=== PATIENT | male | born 1990 | race Caucasian/White ===

== ENCOUNTER 2023-04-27 08:16 | Outpatient (AMB) | payer OTHER, SELFPAY ==
--- NOTE | 2023-04-27 09:02 | MHC.OFFWIV ---
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 Pt states today his bp was also high reading 180/90. 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 Last week he was working outside and was feeling increasingly dehydrated and flushed. He had attributed it to the heat wave conditions and went home early on Wednesday. His girlfriend is a nurse in she was checking his blood pressures and found to be very elevated. They have been and elevated all weekend. Patient gives history of hypertension at age 24 and he stopped taking medications 5 years ago. Patient reports he lost a lot of weight when he stopped taking the medications. [facility] Social History Patient Tobacco Use Status: Never used Tobacco Physical Exam Vital Signs: Last Vital Signs Temp 98 F 04/27/23 09:03 Pulse 73 04/27/23 09:03 BP 182/100 H 04/27/23 09:03 Pulse Ox 98 04/27/23 09:03 Oxygen Delivery Method Room Air 04/27/23 09:03 Const General: cooperative and healthy appearing Nutritional Appearance: well nourished Orientation/consciousness: patient oriented x3 Limitations: no limitations HEENT Head: Yes normal to inspection Eyes General: appearance normal, both eyes and all related structures Neck Neck: Yes normal visual inspection Chest Chest palpation & inspection: normal palpation of entire chest wall Resp Effort & Inspection: normal respiratory effort Neuro General: patient oriented x3 Assessment & Plan Assessment & Plan (1) Essential hypertension: Code(s): I10 - Essential (primary) hypertension Plan: Blood pressure medications started. Unfortunately his primary care appointment is scheduled only in June. I have offered to take care of the patient from the walk-in till he sees his primary care provider. Patient will return in a week for blood pressure checks. Blood work has been ordered. Orders: Orders Complete Blood Count no Diff Today I10 - Essential (primary) hypertension Basic Metabolic Panel Today I10 - Essential (primary) hypertension Liver Panel Today I10 - Essential (primary) hypertension Lipid Panel Today I10 - Essential (primary) hypertension Thyroid Stimulating Hormone Today I10 - Essential (primary) hypertension UA and rflx microscopic Today I10 - Essential (primary) hypertension Medications: New lisinopril-hydrochlorothiazide 10-12.5 mg 1 tab PO DAILY 90 tabs 1RF Coding Level of Care Code New Pt Level 4 (30700) Diagnoses Essential hypertension I10
[2023-04-27 09:03] VITALS: BP 182/100; PULSE 73; TEMP 36.6; O2SAT 98
== END 2023-04-27 09:57 | disposition home or self-care (01) ==
PROVIDERS: PCP Nurse Practitioner Family; Visit Provider Internal Medicine
DX: I10 Essential (primary) hypertension (principal)
CPT/HCPCS: 99204

== ENCOUNTER 2023-04-27 09:37 | Outpatient (REF) | payer OTHER, SELFPAY ==
[2023-04-27 11:42] LABS: Hematocrit 48.6 % (42.0-52.0); Hemoglobin 16.1 g/dl (14.0-18.0); Mean Corpuscular HGB Conc 33.1 g/dl (31.0-36.0); Mean Corpuscular Hemoglobin 28.5 pg (27.0-33.0); Mean Platelet Volume 10.1 fL (9.4-12.4); Platelet Count 391 X10*3/uL (160-400); Red Blood Count 5.65 X10*6/uL (4.60-5.80); Red Cell Distribution Width 12.3 % (11.0-16.0); White Blood Count 8.5 X10*3/uL (4.8-10.8)
[2023-04-27 12:50] LABS: Appearance Urine Clear; Color Urine Yellow; Glucose Urine UA Negative (Negative); Leukocyte Esterase Urine Negative (Negative); Nitrite Urine Negative (Negative); PH 7.5 (5.0-9.0); Urine Blood Negative (Negative); Urine Ketones Negative (Negative); Urine Protein Trace mg/dL (Neg-Trace)
[2023-04-27 13:04] LABS: Alanine Aminotransferase 21 U/L (0-40); Albumin Level 4.7 g/dL (3.5-5.0); Alkaline Phosphatase 49 U/L (39-117); Anion Gap 17 (12-20); Aspartate Amino Transferase 16 U/L (5-37); Bilirubin Direct 0.2 mg/dL (0.0-0.5); Bilirubin Total 0.5 mg/dL (0.0-1.0); Blood Urea Nitrogen 13 mg/dL (9-16); Calcium 10.2 mg/dL (8.4-10.2); Carbon Dioxide 23 mmol/L (22-29); Chloride 106 mmol/L (96-108); Cholesterol 188 mg/dL; Estimated Glomerular Filt Rate > 60; Glucose Random 92 mg/dL (60-115); HDL Cholesterol 33 mg/dL; LDL Cholesterol Calculated 136 mg/dl; Potassium 4.1 mmol/L (3.3-5.1); Sodium 142 mmol/L (135-145); Thyroid Stimulating Hormone 0.92 uIU/mL (0.32-4.0); Triglycerides 96 mg/dL
== END 2023-04-27 09:38 | disposition home or self-care (01) ==
LOC: HO.HMGCLDS 09:37
PROVIDERS: PCP Nurse Practitioner Family; Visit Provider Internal Medicine
DX: I10 Essential (primary) hypertension (principal)
CPT/HCPCS: 36415; 80048; 80061; 80076; 81003; 84443; 85027

== ENCOUNTER 2023-05-03 08:18 | Outpatient (AMB) | payer OTHER, SELFPAY ==
--- NOTE | 2023-05-03 08:47 | AM.OFFWIN_ITS ---
Intake Vital Signs 05/03/23 08:50 Height 5 ft 10 in BP 138/78 Blood Pressure Location Lt brachial Position Sitting Pulse 77 Pulse Source Pulse Oximeter Temp 97.7 F Temp Source Temporal Artery Scan Pulse Oximetry (%) 99 Oxygen Delivery Method Room Air Intake Visit Reasons: EP walk in follow up 04/27 bp (lobby) Patient Tobacco Use Status: Never used Tobacco Allergies Penicillins Adverse Reaction (Intermediate, Verified 05/03/23 08:50) Rash Do you need a note to return to daycare/school/sports/work: No HPI EP walk in follow up 04/27 bp (lobby) HPI Details [age] year old male presents to the office for a follow-up visit. He is tolerating the medications well. I reviewed the blood pressures he had done at home. There less than 135/80. Since he started taking the medication, patient feels a little more tired. Able to function and do activities of daily living. His blood work was reviewed with him. [facility] Social History Patient Tobacco Use Status: Never used Tobacco Physical Exam Vital Signs: Last Vital Signs Temp 97.7 F 05/03/23 08:50 Pulse 77 05/03/23 08:50 BP 138/78 05/03/23 08:50 Pulse Ox 99 05/03/23 08:50 Oxygen Delivery Method Room Air 05/03/23 08:50 Const General: cooperative and healthy appearing Nutritional Appearance: well nourished Orientation/consciousness: patient oriented x3 Limitations: no limitations HEENT Head: Yes normal to inspection Eyes General: appearance normal, both eyes and all related structures Neck Neck: Yes normal visual inspection Chest Chest palpation & inspection: normal palpation of entire chest wall Resp Effort & Inspection: normal respiratory effort Neuro General: patient oriented x3 Assessment & Plan Assessment & Plan (1) Essential hypertension: Code(s): I10 - Essential (primary) hypertension Plan: Blood pressure is in range. Continue medications at same dosage. BW revd with patient. Counselling on the importance of diet and exercise done. Coding Level of Care Code Est Pt Level 4 (58986) Diagnoses Essential hypertension I10
[2023-05-03 08:50] VITALS: BP 138/78; PULSE 77; TEMP 36.5; O2SAT 99
== END 2023-05-03 10:01 | disposition home or self-care (01) ==
PROVIDERS: PCP Nurse Practitioner Family; Visit Provider Internal Medicine
DX: I10 Essential (primary) hypertension (principal)
CPT/HCPCS: 99214

== ENCOUNTER 2023-07-14 15:30 | Outpatient (AMB) | payer OTHER, SELFPAY ==
--- NOTE | 2023-07-14 15:33 | A.OFFPC_ITS ---
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: No Allergies Penicillins Adverse Reaction (Intermediate, Verified 07/14/23 15:59) Rash Medication List - Last Reconciled 07/14/23 by ROSALIND Caceres No Known Home Meds Tobacco use date assessed: 07/14/23 Dental Screening Dental Screen Date: 07/14/23 Did you have a dental visit in the last 12 months?: Yes Did you have a dental problem in the last 6 months where you did not have access to dental care?: No Was dental information given to patient?: Patient has dentist HPI 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 Previous PCP Dr. Salazar at [facility] 2 years ago. Medical history significant for obesity and hypertension-patient reports that he stopped taking lisinopril 3 weeks ago due to side effect of headache, palpitations. Reports systolic blood pressures at home 142-130 and diastolic blood pressure 90. Patient denies any headache, vision changes, shortness of breath or chest pain in the office today. Today we discussed patient's need for tetanus vaccine. He smoked for 10 years and quit 1 year ago. Does not see eye doctor, denies problems with eyes. Will call for dental exam. Recent blood work results reviewed with the patient. [facility] Surgical History No pertinent past surgical history Family History Mother No problems noted. Father No problems noted. Social History Housing: House Patient Tobacco Use Status: Never used Tobacco service: No Current occupational status: employed Cognitive needs: No Hearing needs: No Vision needs: No Questionnaire PHQ-9 Over the last 2 weeks, how often have you been bothered by any of the following problems? 1. Little interest or pleasure in doing things: not at all 2. Feeling down, depressed, or hopeless: not at all 3. Trouble falling or staying asleep, or sleeping too much: not at all 4. Feeling tired or having little energy: not at all 5. Poor appetite or overeating: not at all 6. Feeling bad about yourself - or that you are a failure or have let yourself or your family down: not at all 7. Trouble concentrating on things, such as reading the newspaper or watching television: not at all 8. Moving or speaking so slowly that other people could have noticed. Or the opposite - being so fidgety or restless that you have been moving around a lot more than usual: not at all 9. Thoughts that you would be better off or of hurting yourself in some way: not at all Total score: 0 Depression Screening Interpretation: Negative Depression Screening Done: Yes 32465 - PHQ-9 Billing: Yes Source: Developed by Drs. Morgan Bergman, Jina Ascencio, Cruzito Mahmood and colleagues, with an educational chavo from [employer]. Thrive Questionnaire Date Thrive assessed: 07/14/23 I am a: Patient What is your living situation today?: I have a steady place to live Within the past 12 months, did the food you bought not last and you didn't have the money to get more?: Never true Within the past 12 months, did you worry whether your food would run out before you got money to buy more?: Never true Do you have trouble paying for medicines?: No Do you have trouble getting transportation to medical appointments?: No Do you have trouble paying your heating and electricity bill?: No Do you have trouble taking care of your child, family member or friend?: No Do you have trouble with day-to-day activities such as bathing, preparing meals, shopping, managing finances, etc.?: No Are you currently unemployed and looking for a job?: No Are you interested in more education?: No Currently or been in a relationship where the following occur: no concerns reported AUDIT C Alcohol Use Questionnaire (AUDIT-C) 1. How often do you have a drink containing alcohol?: Never 3. How often do you have six or more drinks on one occasion?: Never Total Score: 0 Score Reviewed/Action Taken: No TEVIN-7 AMB Questionnaire TEVIN-7 Date TEVIN - 7 assessed: 07/14/23 Feeling nervous, anxious, or on edge: 0 = Not at all Not being able to stop or control worryin = Not at all Worrying too much about different things: 0 = Not at all Trouble relaxin = Not at all Being so restless that it is hard to sit still: 0 = Not at all Becoming easily annoyed or irritable: 0 = Not at all Feeling afraid as if something awful might happen: 0 = Not at all Total TEVIN-7 score (0-4 normal; 5-9 mild; 10-14 moderate; 15-21 severe): 0 Source: Developed by Drs. Morgan Bergman, Jina Ascencio, Cruzito Mahmood and colleagues, with an educational chavo from [employer]. TEVIN-7 Assessment Billing TEVIN-7 Assessment Tool: TEVIN-7 Assessment 40320 Review of Systems Const Denies body aches, Denies chills, Denies fever(s) and Denies headache(s) Eyes Denies change in vision ENT Denies dizziness, Denies otalgia, Denies headache(s), Denies nasal discharge, Denies sinus pain and Denies sore throat Card Denies chest pain, Denies edema, Denies lightheadedness and Denies dyspnea Resp Denies cough, Denies dyspnea and Denies wheezing GI Denies abdominal pain, Denies constipation, Denies diarrhea, Denies nausea and Denies vomiting Denies dysuria Musc Denies myalgias Skin/Breast Denies rash Neuro Denies dizziness and Denies headache(s) Aller/Immun Denies wheezing Physical exam (Primary Care) Vital Signs: Last Vital Signs Pulse 90 07/14/23 15:34 BP 164/104 H 07/14/23 16:08 Pulse Ox 99 07/14/23 15:34 Oxygen Delivery Method Room Air 07/14/23 15:34 BMI result Body Mass Index 39.0 Tobacco/Smoking Status: Tobacco use Status Tobacco use date assessed 07/14/23 07/14/23 15:35 Patient Tobacco Use Status Never used Tobacco 07/14/23 15:35 PHQ-9: PHQ-9 Score PHQ-9: Total score 0 07/14/23 16:11 Depression Screening Interpretation: Negative Thrive Assessment: Date of Thrive Assessment Date Thrive assessed 07/14/23 07/14/23 15:35 Currently or been in a relationship where the following occur: no concerns reported Const General: cooperative and no acute distress Orientation/consciousness: patient oriented x3 HENMT Head: Yes normocephalic and Yes atraumatic Ears: TM's normal bilaterally Face and sinus: Yes sinuses nontender Mouth: oropharynx normal and moist mucous membranes Throat: Yes posterior oropharynx normal Eyes General: appearance normal, both eyes and all related structures Pupils: Equal, round and reactive pupils present EOM: EOMs intact bilaterally Neck Neck: Yes normal visual inspection, Yes full ROM and Yes no lymphadenopathy Thyroid: Thyroid normal Resp Effort & Inspection: normal respiratory effort and able to speak in complete sentences Auscultation: clear to auscultation bilaterally, no crackles, no rales, no rhonchi and no wheezes Cardio Rate: regular rate Rhythm: regular rhythm Heart sounds: S1 normal heart sound present, S2 normal heart sound present and no murmurs GI Palpation (GI): Soft to palpation, not firm, nontender, no guarding, not rigid and no hepatosplenomegaly Auscultation: normal bowel sounds General: No CVA tenderness Back/Spine/Pelvis Back: No CVA tenderness Skin General skin exam: no rashes or lesions noted Neuro General: patient oriented x3 Cranial nerves: Yes Equal, round and reactive pupils present Gait exam (Neuro): Normal gait present Extrem General: Yes full ROM and No edema Immunizations tetanus-diphtheria toxoids-Td 2 Lf unit-2 Lf unit/0.5 mL IM suspension Performing Provider: ROSALIND Caceres Performing Location: [facility] Administered by: NIKKI Mathew on 07/14/23 16:12 Dose Route Admin Location Dispensed Lot Number Expiration Date 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 0.5 mL IM Left Deltoid 0.5 mL [id number] 01/31/24 [address]-9 [employer] VIS Given Date VIS Provided VIS Publication Date 07/14/23 Single Vaccine 21 Eligibility Eligibility Date Funding Source Not VFC Eligible 07/14/23 State funds Assessment and Plan Assessment & Plan (1) Essential hypertension: Code(s): I10 - Essential (primary) hypertension Plan: Goal BP equal or less than 140/90 Blood pressure is high in the office today, he denies acute symptoms Reports blood pressure this morning 130/90 Will start amlodipine 2.5 mg daily-possible adverse reactions reviewed with the patient and when to notify provider Encouraged low-sodium diet and weight loss Follow-up with nurse in 2 weeks for BP recheck Signs and symptoms reviewed when to notify provider or go to the emergency department (2) Adult general medical exam: Code(s): Z00.00 - Encounter for general adult medical examination without abnormal findings (3) Obesity (BMI 30-39.9): Code(s): E66.9 - Obesity, unspecified Plan: Encouraged healthy food choices and exercise as tolerated Patient would like to hold off on weight management referral at this time Plan Follow-up in 3 months Patient is due for tetanus vaccine Orders: Orders Td State Immunization Today Z23 - Encounter for immunization Medications: New amlodipine 2.5 mg PO DAILY 30 tabs 2RF I10 - Essential (primary) hypertension Coding Level of Care Code New Pt Prev Care 18-39yr(82508 Diagnoses Essential hypertension I10 Adult general medical exam Z00.00 Obesity (BMI 30-39.9) E66.9 Additional Codes TEVIN-7 Assessment Billing - TEVIN-7 Assessment Tool: TEVIN-7 Assessment 07172 ([id number])
[2023-07-14 15:34] VITALS: BP 178/110; PULSE 90; O2SAT 99; BMI 39.0
[2023-07-14 16:08] VITALS: BP 164/104
== END 2023-07-14 16:19 | disposition home or self-care (01) ==
PROVIDERS: PCP Nurse Practitioner Family; Visit Provider Nurse Practitioner Family
DX: Z00.00 Encounter for general adult medical examination without abnormal findings (principal); I10 Essential (primary) hypertension; E66.9 Obesity, unspecified; Z68.39 Body mass index [BMI] 39.0-39.9, adult; Z23 Encounter for immunization
CPT/HCPCS: 90471; 90714; 99385

== ENCOUNTER 2024-01-06 07:54 | Outpatient (AMB) | payer OTHER, SELFPAY ==
--- NOTE | 2024-01-06 07:57 | MHC.PC.OV ---
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 Accompanied by: Self / Same As Patient Allergies Penicillins Adverse Reaction (Intermediate, Verified 01/06/24 08:26) Rash Medication List - Last Reconciled 01/06/24 by Kai Kunz MD amlodipine 10 mg PO DAILY hydrochlorothiazide 25 mg PO DAILY Tobacco use date assessed: 01/06/24 Dental Screening Dental Screen Date: 01/06/24 Did you have a dental visit in the last 12 months?: No Did you have a dental problem in the last 6 months where you did not have access to dental care?: No Was dental information given to patient?: Patient has dentist HPI BP follow up HPI Details 33-year-old male presents to the office to discuss his chronic medical conditions. Patient is compliant with amlodipine. Blood pressures continue to be elevated. This morning prior to coming to the office he recorded his blood pressure at home and it was 160 systolic. Could not recall the diastolic number. No symptoms of headache nausea or blurred vision. [facility] Medical History (Updated 01/06/24 @ 08:30 by Kai Kunz MD) Class 2 severe obesity with body mass index (BMI) of 35 to 39.9 with serious comorbidity Essential hypertension Surgical History No pertinent past surgical history Family History Mother No problems noted. Father No problems noted. Social History Housing: House Patient Tobacco Use Status: Never used Tobacco e-Cigarette/Vaping Use: Never Used Second Hand Smoke Exposure: No service: No Current occupational status: employed Current occupational exposures/hazards: No Cognitive needs: No Hearing needs: No Vision needs: No Questionnaire PHQ-9 Over the last 2 weeks, how often have you been bothered by any of the following problems? 1. Little interest or pleasure in doing things: not at all 2. Feeling down, depressed, or hopeless: not at all 3. Trouble falling or staying asleep, or sleeping too much: not at all 4. Feeling tired or having little energy: not at all 5. Poor appetite or overeating: not at all 6. Feeling bad about yourself - or that you are a failure or have let yourself or your family down: not at all 7. Trouble concentrating on things, such as reading the newspaper or watching television: not at all 8. Moving or speaking so slowly that other people could have noticed. Or the opposite - being so fidgety or restless that you have been moving around a lot more than usual: not at all 9. Thoughts that you would be better off or of hurting yourself in some way: not at all Total score: 0 Source: Developed by Drs. Morgan Bergman, Jina Ascencio, Cruzito Mahmood and colleagues, with an educational chavo from [employer]. Thrive Questionnaire Date Thrive assessed: 01/06/24 I am a: Patient What is your living situation today?: I have a steady place to live Within the past 12 months, did the food you bought not last and you didn't have the money to get more?: Never true Within the past 12 months, did you worry whether your food would run out before you got money to buy more?: Never true Do you have trouble paying for medicines?: No Do you have trouble getting transportation to medical appointments?: No Do you have trouble paying your heating and electricity bill?: No Do you have trouble taking care of your child, family member or friend?: No Do you have trouble with day-to-day activities such as bathing, preparing meals, shopping, managing finances, etc.?: No Are you currently unemployed and looking for a job?: No Are you interested in more education?: No Please select the resources that you would like help with: None Currently or been in a relationship where the following occur: no concerns reported THRIVE Score: 0 AUDIT C Alcohol Use Questionnaire (AUDIT-C) 1. How often do you have a drink containing alcohol?: Never Total Score: 0 TEVIN-7 AMB Questionnaire TEVIN-7 Date TEVIN - 7 assessed: 01/06/24 Feeling nervous, anxious, or on edge: 0 = Not at all Not being able to stop or control worryin = Not at all Worrying too much about different things: 0 = Not at all Trouble relaxin = Not at all Being so restless that it is hard to sit still: 0 = Not at all Becoming easily annoyed or irritable: 0 = Not at all Feeling afraid as if something awful might happen: 0 = Not at all Total TEVIN-7 score (0-4 normal; 5-9 mild; 10-14 moderate; 15-21 severe): 0 Source: Developed by Drs. Morgan Bergman, Jina Ascencio, Cruzito Mahmood and colleagues, with an educational chavo from [employer]. Physical exam (Primary Care) Vital Signs: Last Vital Signs Pulse 92 01/06/24 08:02 BP 148/100 H 01/06/24 08:02 Pulse Ox 98 01/06/24 08:02 Care Plan Goal for BP management: Diastolic blood pressure is elevated. Hydrochlorothiazide added to the regimen. BMI result Body Mass Index 38.2 BMI Assessment/Plan discussion: High (1 lb per week weight loss suggested.) BMI High, discussed plan: lifestyle, weight reduction and dietary Tobacco/Smoking Status: Tobacco use Status Tobacco use date assessed 01/06/24 01/06/24 08:08 Patient Tobacco Use Status Never used Tobacco 01/06/24 08:08 e-Cigarette/Vaping Use Never Used 01/06/24 08:08 PHQ-9: PHQ-9 Score PHQ-9: Total score 0 01/06/24 08:11 Thrive Assessment: Date of Thrive Assessment Date Thrive assessed 01/06/24 01/06/24 08:08 Currently or been in a relationship where the following occur: no concerns reported Advance Care Planning discussion: Exists, not on file Const General: cooperative and healthy appearing Nutritional Appearance: well nourished Orientation/consciousness: patient oriented x3 Limitations: no limitations HENMT Head: Yes normal to inspection Eyes General: appearance normal, both eyes and all related structures Neck Neck: Yes normal visual inspection Chest Chest palpation & inspection: normal palpation of entire chest wall Resp Effort & Inspection: normal respiratory effort Neuro General: patient oriented x3 Assessment and Plan Assessment & Plan (1) Essential hypertension: Code(s): I10 - Essential (primary) hypertension Plan: Blood pressure is elevated. Hydrochlorothiazide added to the regimen. Blood work has been ordered. Patient was counseled to check his blood pressures at least once a day. He was advised to log into the portal and report his blood pressure reading. Patient has agreed. (2) Obesity (BMI 30-39.9): Code(s): E66.9 - Obesity, unspecified (3) Class 2 severe obesity with body mass index (BMI) of 35 to 39.9 with serious comorbidity: Code(s): E66.01 - Morbid (severe) obesity due to excess calories Plan: 20 minutes was spent on counseling the patient on weight loss. I encouraged him to eat a low calorie and a diet devoid of sugars. Patient was encouraged to exercise at least 3 times a week. Orders: Orders Basic Metabolic Panel Today I10 - Essential (primary) hypertension Liver Panel Today I10 - Essential (primary) hypertension Complete Blood Count no Diff Today I10 - Essential (primary) hypertension Lipid Panel Today I10 - Essential (primary) hypertension Thyroid Stimulating Hormone Today I10 - Essential (primary) hypertension UA and rflx microscopic Today I10 - Essential (primary) hypertension Medications: New hydrochlorothiazide 25 mg PO DAILY 90 tabs 1RF Coding Level of Care Code Est Pt Level 4 (97050) Diagnoses Essential hypertension I10 Obesity (BMI 30-39.9) E66.9 Class 2 severe obesity with body mass index (BMI) of 35 to 39.9 with serious comorbidity E66.01 Additional Codes Vital Signs *Quality* - Advance Care Planning discussion: Exists, not on file ([id number])
[2024-01-06 08:02] VITALS: BP 148/100; PULSE 92; O2SAT 98; BMI 38.2
== END 2024-01-06 08:20 | disposition home or self-care (01) ==
PROVIDERS: PCP Internal Medicine; Visit Provider Internal Medicine
DX: I10 Essential (primary) hypertension (principal); E66.01 Morbid (severe) obesity due to excess calories; Z68.38 Body mass index [BMI] 38.0-38.9, adult; Z00.00 Encounter for general adult medical examination without abnormal findings
CPT/HCPCS: 1123F; 99214

== ENCOUNTER 2024-01-06 08:39 | Outpatient (REF) | payer OTHER, SELFPAY ==
[2024-01-06 10:22] LABS: Hematocrit 42.9 % (42.0-52.0); Hemoglobin 14.7 g/dl (14.0-18.0); Mean Corpuscular HGB Conc 34.3 g/dl (31.0-36.0); Mean Corpuscular Hemoglobin 28.7 pg (27.0-33.0); Mean Corpuscular Volume 83.8 fL (80.0-98.0); Mean Platelet Volume 10.2 fL (9.4-12.4); Platelet Count 309 X10*3/uL (160-400); Red Blood Count 5.12 X10*6/uL (4.60-5.80); Red Cell Distribution Width 12.2 % (11.0-16.0); White Blood Count 6.5 X10*3/uL (4.8-10.8)
[2024-01-06 10:29] LABS: Appearance Urine Clear; Color Urine Yellow; Glucose Urine UA Negative (Negative); Leukocyte Esterase Urine Negative (Negative); Nitrite Urine Negative (Negative); Specific Gravity - Urine 1.025 (1.005-1.025); Urine Blood Negative (Negative); Urine Ketones Negative (Negative); Urine Protein Negative (Neg-Trace)
[2024-01-06 11:13] LABS: Alanine Aminotransferase 22 U/L (0-40); Albumin Level 4.6 g/dL (3.5-5.0); Alkaline Phosphatase 44 U/L (39-117); Anion Gap 10 (12-20); Aspartate Amino Transferase 17 U/L (5-37); Bilirubin Direct 0.1 mg/dL (0.0-0.5); Bilirubin Total 0.4 mg/dL (0.0-1.0); Blood Urea Nitrogen 16 mg/dL (9-16); Calcium 9.4 mg/dL (8.4-10.2); Carbon Dioxide 25 mmol/L (22-29); Chloride 109 mmol/L (96-108); Cholesterol 151 mg/dL (<200); Estimated Glomerular Filt Rate > 60; Glucose Random 94 mg/dL (60-115); HDL Cholesterol 30 mg/dL (>40); LDL Cholesterol Calculated 101 mg/dL (<100); Potassium 4.1 mmol/L (3.3-5.1); Sodium 140 mmol/L (135-145); Total Protein 7.4 g/dL (6.5-8.0); Triglycerides 102 mg/dL (<150)
[2024-01-06 11:18] LABS: Thyroid Stimulating Hormone 1.11 uIU/mL (0.32-4.0)
== END 2024-01-06 08:40 | disposition home or self-care (01) ==
LOC: HO.HMGCLDS 08:39
PROVIDERS: PCP Internal Medicine; Visit Provider Internal Medicine
DX: I10 Essential (primary) hypertension (principal)
CPT/HCPCS: 36415; 80048; 80061; 80076; 81003; 84443; 85027

== ENCOUNTER 2024-04-27 09:09 | Outpatient (AMB) | payer OTHER, SELFPAY ==
[2024-04-27 09:32] VITALS: BP 140/98; PULSE 60; O2SAT 97; BMI 39.0
--- NOTE | 2024-04-27 09:32 | MHC.PC.OV ---
Vital Signs 04/27/24 09:32 Height 5 ft 10 in Weight 272 lb 0.4 oz BMI 39.0 BP 140/98 H Blood Pressure Location Lt brachial Position Sitting Pulse 60 Pulse Source Pulse Oximeter Pulse Oximetry (%) 97 Oxygen Delivery Method Room Air Intake Visit Reasons: 3 months f/u [employer] Debeader Required: No Allergies Penicillins Adverse Reaction (Intermediate, Verified 04/27/24 09:32) Rash Tobacco use date assessed: 01/06/24 Dental Screening Dental Screen Date: 01/06/24 HPI 3 months f/u HPI Details 33-year-old male presents to the office to discuss her chronic medical conditions. Has been compliant with medications and reporting no side effects. Able to function and do activities of daily living. Patient has been trying to lose weight but has been having a difficult time doing so. He is very active with his dog and has been exercising regularly. Does not follow any particular diet. [facility] Medical History (Updated 01/06/24 @ 08:30 by Kai Kunz MD) Class 2 severe obesity with body mass index (BMI) of 35 to 39.9 with serious comorbidity Essential hypertension Surgical History No pertinent past surgical history Family History Mother No problems noted. Father No problems noted. Social History Housing: House Patient Tobacco Use Status: Never used Tobacco e-Cigarette/Vaping Use: Never Used Second Hand Smoke Exposure: No service: No Current occupational status: employed Current occupational exposures/hazards: No Cognitive needs: No Hearing needs: No Vision needs: No Questionnaire Thrive Questionnaire Date Thrive assessed: 01/06/24 AUDIT C Alcohol Use Questionnaire (AUDIT-C) 1. How often do you have a drink containing alcohol?: Never 3. How often do you have six or more drinks on one occasion?: Never Total Score: 0 TEVIN-7 AMB Questionnaire TEVIN-7 Date TEVIN - 7 assessed: 01/06/24 Source: Developed by Drs. Morgan Bergman, Jina Ascencio, Cruzito Mahmood and colleagues, with an educational chavo from [employer]. Physical exam (Primary Care) Vital Signs: Last Vital Signs Pulse 60 04/27/24 09:32 BP 140/98 H 04/27/24 09:32 Pulse Ox 97 04/27/24 09:32 Oxygen Delivery Method Room Air 04/27/24 09:32 BMI result Body Mass Index 39.0 Tobacco/Smoking Status: Tobacco use Status Tobacco use date assessed 01/06/24 04/27/24 09:32 Patient Tobacco Use Status Never used Tobacco 04/27/24 09:32 e-Cigarette/Vaping Use Never Used 04/27/24 09:32 Thrive Assessment: Date of Thrive Assessment Date Thrive assessed 01/06/24 08 09:32 Const General: cooperative and healthy appearing Nutritional Appearance: well nourished Orientation/consciousness: patient oriented x3 Limitations: no limitations HENMT Head: Yes normal to inspection Eyes General: appearance normal, both eyes and all related structures Neck Neck: Yes normal visual inspection Chest Chest palpation & inspection: normal palpation of entire chest wall Resp Effort & Inspection: normal respiratory effort Neuro General: patient oriented x3 Assessment and Plan Assessment & Plan (1) Class 2 severe obesity with body mass index (BMI) of 35 to 39.9 with serious comorbidity: Code(s): E66.01 - Morbid (severe) obesity due to excess calories Plan: Counseling on the importance of diet and exercise done. Patient was advised to be on a 1200 calorie diet. (2) Essential hypertension: Code(s): I10 - Essential (primary) hypertension Plan: Blood pressure is in range. Continue amlodipine and hydrochlorothiazide. Counseling on the importance of diet and exercise to control blood pressures done. Coding Level of Care Code Est Pt Level 4 (42651) Complex EM visit Add On G2211 Diagnoses Class 2 severe obesity with body mass index (BMI) of 35 to 39.9 with serious comorbidity E66.01 Essential hypertension I10
== END 2024-04-27 09:55 | disposition home or self-care (01) ==
PROVIDERS: PCP Internal Medicine; Visit Provider Internal Medicine
DX: I10 Essential (primary) hypertension (principal); E66.01 Morbid (severe) obesity due to excess calories; Z68.39 Body mass index [BMI] 39.0-39.9, adult
CPT/HCPCS: 99214

== ENCOUNTER 2025-04-13 07:50 | Outpatient (AMB) | payer OTHER, SELFPAY ==
[2025-04-13 07:55] VITALS: BP 154/96; PULSE 77; TEMP 36.8; O2SAT 97; BMI 38.4
--- NOTE | 2025-04-13 07:55 | AM.OFFWIN_ITS ---
Intake Vital Signs 04/13/25 07:55 Height 5 ft 10 in Weight 268 lb BMI 38.4 BP 154/96 H Blood Pressure Location Lt brachial Position Sitting Pulse 77 Pulse Source Pulse Oximeter Temp 98.2 F Temp Source Oral Pulse Oximetry (%) 97 Oxygen Delivery Method Room Air Intake Visit Reasons: EP-sore throat & swollen, ears block Intake Note: presents with swollen and sore throat with difficulty swallowing, ears were blocked yesterday Patient Tobacco Use Status: Never used Tobacco Allergies Penicillins Adverse Reaction (Intermediate, Verified 04/13/25 07:58) Rash Do you need a note to return to daycare/school/sports/work: No HPI HPI Comments History of Present Illness Details This is a 34-year-old male with a past medical history of hypertension presenting for a throat felt very swollen yesterday but states that it ?looks better? this morning. Patient denies having any fevers, chills, otalgia, cough or shortness of breath. Patient has taken ibuprofen with moderate relief of his symptoms. [facility] Medical History (Updated 04/13/25 @ 08:22 by Ana Freed PA-C) Class 2 severe obesity with body mass index (BMI) of 35 to 39.9 with serious comorbidity Essential hypertension Surgical History No pertinent past surgical history Family History Mother No problems noted. Father No problems noted. Social History Housing: House Patient Tobacco Use Status: Never used Tobacco e-Cigarette/Vaping Use: Never Used Second Hand Smoke Exposure: No service: No Current occupational status: employed Current occupational exposures/hazards: No Cognitive needs: No Hearing needs: No Vision needs: No Review of Systems Const All systems reviewed & are unremarkable except as noted in HPI and below Denies body aches, Denies chills, Denies fever(s) and Denies headache(s) Eyes Reports no additional complaints ENT Reports no additional complaints, Denies otalgia, Denies headache(s), Reports sore throat and Reports throat swelling Card Reports no additional complaints Resp Reports no additional complaints and Denies cough GI Reports no additional complaints Reports no additional complaints Musc Reports no additional complaints Skin/Breast Reports system reviewed and no additional complaints, except as documented Neuro Reports no additional complaints and Denies headache(s) Psych Reports no additional complaints Endo Reports no additional complaints Fernando/Lymph Reports no additional complaints Aller/Immun Reports no additional complaints and Reports throat swelling Physical Exam Vital Signs: Last Vital Signs Temp 98.2 F 04/13/25 07:55 Pulse 77 04/13/25 07:55 BP 154/96 H 04/13/25 07:55 Pulse Ox 97 04/13/25 07:55 Oxygen Delivery Method Room Air 04/13/25 07:55 BMI result Body Mass Index 38.4 Patient is afebrile, hypertensive. Const General: cooperative, healthy appearing, comfortable, no acute distress, well developed, alert, awake and Physically active; No ill appearing or lethargic Nutritional Appearance: overweight Orientation/consciousness: patient oriented x3 and No lethargic Limitations: no limitations HEENT Head: Yes normal to inspection Ears: hearing grossly normal bilaterally, TM normal on the right, left TM abnormal (Mild erythema) and EAC's normal General nose exam: Normal external nose present Face and sinus: Yes normal facial exam and Yes sinuses nontender Mouth: Normal oral and palatal mucosa present and oropharynx normal Throat: Yes posterior oropharynx normal and Yes postnasal drainage Eyes General: appearance normal, both eyes and all related structures Neck Lymphatic: no lymphadenopathy noted Resp Effort & Inspection: normal respiratory effort Auscultation: clear to auscultation bilaterally Cardio Rate: regular rate Rhythm: regular rhythm Neuro General: patient oriented x3 Psych Appearance: grossly normal Mental Status: mental status grossly normal Insight: Good insight present (Psych) Judgement: Good judgement present (Psych) Results Reviewed Results Reviewed: Rapid strep is negative Assessment & Plan Assessment & Plan (1) Otitis media of left ear: Comment: Patient's rapid strep test is negative, there is no erythema, edema or exudates of the posterior oropharynx however the left TM is erythematous. Patient will be discharged home with antibiotic therapy. Code(s): H66.92 - Otitis media, unspecified, left ear Qualifiers: Otitis media type: unspecified Qualified Code(s): H66.92 - Otitis media, unspecified, left ear Plan: Cefpodoxime 200 mg b.i.d. x7 days, ibuprofen OTC as needed with increased clear fluids. Orders: Orders AMB Rapid Strep Screen Today Z13.9 - Encounter for screening, unspecified Coding Level of Care Code Est Pt Level 3 (89479) Diagnoses Left otitis media, unspecified otitis media type H66.92 Otitis media type: unspecified Time Spent (min) 20
== END 2025-04-13 08:42 | disposition home or self-care (01) ==
PROVIDERS: PCP Internal Medicine; Visit Provider Physician Assistant
DX: H66.92 Otitis media, unspecified, left ear (principal)

== ENCOUNTER 2025-08-03 15:53 | Outpatient (AMB) | payer OTHER, SELFPAY ==
[2025-08-03 16:05] VITALS: BP 162/80; PULSE 83; RESP 18; TEMP 36.6; O2SAT 97; BMI 38.5
--- NOTE | 2025-08-03 16:05 | MHC.PC.OV ---
Vital Signs 08/03/25 16:05 Height 5 ft 10 in Weight 268 lb 4 oz BMI 38.5 BP 162/80 H Blood Pressure Location Lt brachial Position Sitting Respiration 18 Pulse 83 Pulse Source Pulse Oximeter Temp 97.8 F Temp Source Temporal Artery Scan Pulse Oximetry (%) 97 Oxygen Delivery Method Room Air Intake Visit Reasons: [facility] [employer] Specialist Required: No Accompanied by: Self / Same As Patient Allergies Penicillins Adverse Reaction (Intermediate, Verified 08/03/25 16:06) Rash Tobacco use date assessed: 08/03/25 Dental Screening Dental Screen Date: 08/03/25 Did you have a dental visit in the last 12 months?: No Did you have a dental problem in the last 6 months where you did not have access to dental care?: No Was dental information given to patient?: No [facility] Medical History Class 2 severe obesity with body mass index (BMI) of 35 to 39.9 with serious comorbidity Essential hypertension Surgical History No pertinent past surgical history Family History Mother No problems noted. Father No problems noted. Social History Housing: House Patient Tobacco Use Status: Never used Tobacco e-Cigarette/Vaping Use: Never Used Second Hand Smoke Exposure: No service: No Current occupational status: employed Current occupational exposures/hazards: No Cognitive needs: No Hearing needs: No Vision needs: No Questionnaire PHQ-9 Over the last 2 weeks, how often have you been bothered by any of the following problems? 1. Little interest or pleasure in doing things: not at all 2. Feeling down, depressed, or hopeless: not at all 3. Trouble falling or staying asleep, or sleeping too much: not at all 4. Feeling tired or having little energy: not at all 5. Poor appetite or overeating: not at all 6. Feeling bad about yourself - or that you are a failure or have let yourself or your family down: not at all 7. Trouble concentrating on things, such as reading the newspaper or watching television: not at all 8. Moving or speaking so slowly that other people could have noticed. Or the opposite - being so fidgety or restless that you have been moving around a lot more than usual: not at all 9. Thoughts that you would be better off or of hurting yourself in some way: not at all Total score: 0 Source: Developed by Drs. Morgan Bergman, Jina Ascencio, Cruzito Mahmood and colleagues, with an educational chavo from [employer]. Thrive Questionnaire Date Thrive assessed: 08/03/25 I am a: Patient What is your living situation today?: I have a steady place to live Within the past 12 months, did the food you bought not last and you didn't have the money to get more?: Never true Within the past 12 months, did you worry whether your food would run out before you got money to buy more?: Never true Do you have trouble paying for medicines?: No Do you have trouble getting transportation to medical appointments?: No Do you have trouble paying your heating and electricity bill?: No Do you have trouble taking care of your child, family member or friend?: No Do you have trouble with day-to-day activities such as bathing, preparing meals, shopping, managing finances, etc.?: No Are you currently unemployed and looking for a job?: No Are you interested in more education?: No Please select the resources that you would like help with: None Currently or been in a relationship where the following occur: No concerns reported THRIVE Score: 0 AUDIT C Alcohol Use Questionnaire (AUDIT-C) 1. How often do you have a drink containing alcohol?: Monthly or less 2. How many drinks containing alcohol do you have on a typical day when you are drinking?: 1 or 2 3. How often do you have six or more drinks on one occasion?: Never Total Score: 1 TEVIN-7 AMB Questionnaire TEVIN-7 Date TEVIN - 7 assessed: 08/03/25 Feeling nervous, anxious, or on edge: 0 = Not at all Not being able to stop or control worryin = Not at all Worrying too much about different things: 0 = Not at all Trouble relaxin = Not at all Being so restless that it is hard to sit still: 0 = Not at all Becoming easily annoyed or irritable: 0 = Not at all Feeling afraid as if something awful might happen: 0 = Not at all Total TEVIN-7 score (0-4 normal; 5-9 mild; 10-14 moderate; 15-21 severe): 0 Source: Developed by Drs. Morgan Bergman, Jina Ascencio, Cruzito Mahmood and colleagues, with an educational chavo from [employer]. Physical exam (Primary Care) Vital Signs: Last Vital Signs Temp 97.8 F 08/03/25 16:05 Pulse 83 08/03/25 16:05 Resp 18 08/03/25 16:05 BP 162/80 H 08/03/25 16:05 Pulse Ox 97 08/03/25 16:05 Oxygen Delivery Method Room Air 08/03/25 16:05 BMI result Body Mass Index 38.5 Tobacco/Smoking Status: Tobacco use Status Tobacco use date assessed 08/03/25 08/03/25 16:11 Patient Tobacco Use Status Never used Tobacco 08/03/25 16:11 e-Cigarette/Vaping Use Never Used 08/03/25 16:11 PHQ-9: PHQ-9 Score PHQ-9: Total score 0 08/03/25 16:11 Thrive Assessment: Date of Thrive Assessment Date Thrive assessed 08/03/25 08/03/25 16:11 Currently or been in a relationship where the following occur: No concerns reported Coding
--- NOTE | 2025-08-03 16:18 | A.OFFPC_ITS ---
Vital Signs 08/03/25 16:05 Height 5 ft 10 in Weight 268 lb 4 oz BMI 38.5 BP 162/80 H Blood Pressure Location Lt brachial Position Sitting Respiration 18 Pulse 83 Pulse Source Pulse Oximeter Temp 97.8 F Temp Source Temporal Artery Scan Pulse Oximetry (%) 97 Oxygen Delivery Method Room Air Intake Visit Reasons: PE Allergies Penicillins Adverse Reaction (Intermediate, Verified 08/03/25 16:23) Rash Medication List - Last Reconciled 08/03/25 by NILSON Posadas amlodipine 10 mg PO DAILY Tobacco use date assessed: 08/03/25 Dental Screening Dental Screen Date: 08/03/25 Did you have a dental visit in the last 12 months?: No Did you have a dental problem in the last 6 months where you did not have access to dental care?: No Was dental information given to patient?: No HPI PE HPI Details Dentist: not within a year, just got dental insurance again Eye: not in awhile Snellen: Right: Left: Corrected vision: no STI screening:n /a Colonoscopy: Pap Smer: PHQ-9: Flu: no COVID: x2 Tdap: 2022 Diet:regular, but watching what he eats Exercise: body weights and cardio. The patient is a 34-year-old male presenting for management of hypertension and weight concerns. He has a history of high blood pressure and is prescribed hydrochlorothiazide, though he is intermittently adherent. He reports symptoms of polyuria, which he attributes to the medication, and questions if the dose is too high. The patient's main concern is his weight; although he feels he is losing fat, the scale has not moved. For the past six months, he has been counting calories, consuming around 1200 per day, and is frustrated by the lack of results, with his weight hovering around 262 lbs. A review of last year's labs shows improvement in cholesterol with an LDL of 101 mg/dL, down from 136 mg/dL, though HDL remains low. Kidney and liver function tests are normal. He will need new labs to re-evaluate. His father has a history of high blood pressure. The patient is up-to-date on his tetanus vaccination, having received one in 2022, and has had two COVID-19 vaccines. He has not had a dental or eye exam within the last year. [facility] Medical History Class 2 severe obesity with body mass index (BMI) of 35 to 39.9 with serious comorbidity Essential hypertension Surgical History No pertinent past surgical history Family History Mother No problems noted. Father No problems noted. Social History Housing: House Patient Tobacco Use Status: Never used Tobacco e-Cigarette/Vaping Use: Never Used Second Hand Smoke Exposure: No service: No Current occupational status: employed Current occupational exposures/hazards: No Cognitive needs: No Hearing needs: No Vision needs: No Questionnaire PHQ-9 Over the last 2 weeks, how often have you been bothered by any of the following problems? 1. Little interest or pleasure in doing things: not at all 2. Feeling down, depressed, or hopeless: not at all 3. Trouble falling or staying asleep, or sleeping too much: not at all 4. Feeling tired or having little energy: not at all 5. Poor appetite or overeating: not at all 6. Feeling bad about yourself - or that you are a failure or have let yourself or your family down: not at all 7. Trouble concentrating on things, such as reading the newspaper or watching television: not at all 8. Moving or speaking so slowly that other people could have noticed. Or the opposite - being so fidgety or restless that you have been moving around a lot more than usual: not at all 9. Thoughts that you would be better off or of hurting yourself in some way: not at all Total score: 0 Depression Screening Interpretation: Negative Depression Screening Done: Yes 41425 - PHQ-9 Billing: Yes Source: Developed by Drs. Morgan Bergman, Jina Ascencio, Cruzito Mahmood and colleagues, with an educational chavo from [employer]. Thrive Questionnaire Date Thrive assessed: 08/03/25 I am a: Patient What is your living situation today?: I have a steady place to live Within the past 12 months, did the food you bought not last and you didn't have the money to get more?: Never true Within the past 12 months, did you worry whether your food would run out before you got money to buy more?: Never true Do you have trouble paying for medicines?: No Do you have trouble getting transportation to medical appointments?: No Do you have trouble paying your heating and electricity bill?: No Do you have trouble taking care of your child, family member or friend?: No Do you have trouble with day-to-day activities such as bathing, preparing meals, shopping, managing finances, etc.?: No Are you currently unemployed and looking for a job?: No Are you interested in more education?: No Please select the resources that you would like help with: None Currently or been in a relationship where the following occur: No concerns reported THRIVE Score: 0 AUDIT C Alcohol Use Questionnaire (AUDIT-C) 1. How often do you have a drink containing alcohol?: Monthly or less 2. How many drinks containing alcohol do you have on a typical day when you are drinking?: 1 or 2 3. How often do you have six or more drinks on one occasion?: Never Total Score: 1 TEVIN-7 AMB Questionnaire TEVIN-7 Date TEVIN - 7 assessed: 08/03/25 Feeling nervous, anxious, or on edge: 0 = Not at all Not being able to stop or control worryin = Not at all Worrying too much about different things: 0 = Not at all Trouble relaxin = Not at all Being so restless that it is hard to sit still: 0 = Not at all Becoming easily annoyed or irritable: 0 = Not at all Feeling afraid as if something awful might happen: 0 = Not at all Total TEVIN-7 score (0-4 normal; 5-9 mild; 10-14 moderate; 15-21 severe): 0 Source: Developed by Drs. Morgan Bergman, Jina Ascencio, Cruzito Mahmood and colleagues, with an educational chavo from [employer]. TEVIN-7 Assessment Billing TEVIN-7 Assessment Tool: TEVIN-7 Assessment 40571 Review of Systems Const Denies headache(s) Eyes Denies loss of vision ENT Denies vertigo, Denies dizziness, Denies headache(s) and Denies sore throat Card Denies chest pain, Denies leg edema and Denies lightheadedness Resp Denies cough, Denies hemoptysis and Denies wheezing GI Denies abdominal pain, Denies melena, Denies constipation, Denies diarrhea and Denies vomiting Denies dysuria, Denies urinary frequency and Denies urinary urgency Musc Denies arthralgias, Denies joint swelling, Denies numbness and Denies tingling Neuro Denies Abnormal speech present, Denies behavioral changes, Denies vertigo, Denies dizziness, Denies headache(s), Denies loss of vision, Denies memory loss, Denies numbness and Denies tingling Psych Denies anxiety, Denies behavioral changes, Denies depression, Denies memory loss and Denies panic attacks Fernando/Lymph Denies easy bleeding and Denies easy bruising Aller/Immun Denies wheezing Physical exam (Primary Care) Vital Signs: Last Vital Signs Temp 97.8 F 08/03/25 16:05 Pulse 83 08/03/25 16:05 Resp 18 08/03/25 16:05 BP 162/80 H 08/03/25 16:05 Pulse Ox 97 08/03/25 16:05 Oxygen Delivery Method Room Air 08/03/25 16:05 BMI result Body Mass Index 38.5 Tobacco/Smoking Status: Tobacco use Status Tobacco use date assessed 08/03/25 08/03/25 16:24 Patient Tobacco Use Status Never used Tobacco 08/03/25 16:24 e-Cigarette/Vaping Use Never Used 08/03/25 16:24 PHQ-9: PHQ-9 Score PHQ-9: Total score 0 08/03/25 16:24 Depression Screening Interpretation: Negative Thrive Assessment: Date of Thrive Assessment Date Thrive assessed 08/03/25 08/03/25 16:24 Currently or been in a relationship where the following occur: No concerns reported Const General: healthy appearing, no acute distress, alert and awake Nutritional Appearance: well nourished Orientation/consciousness: oriented to person, oriented to place and oriented to time HENMT Ears: TM's normal bilaterally General nose exam: Normal nasal mucous membranes and turbinates present Eyes Conjunctivae: conjunctivae normal Sclerae: sclerae normal Pupils: Equal, round and reactive pupils present Neck Neck: Yes no lymphadenopathy and Yes no JVD Thyroid: Thyroid normal Carotids: no bruits Resp Effort & Inspection: normal respiratory effort and not tachypneic Auscultation: no crackles, no rales, no rhonchi and no wheezes Cardio Rate: regular rate Rhythm: regular rhythm Heart sounds: no murmurs and normal S1 and S2 GI Inspection: Yes obesity Palpation (GI): Soft to palpation, nontender, no hepatomegaly and no splenomegaly Auscultation: normal bowel sounds General: Yes no CVA tenderness Back/Spine/Pelvis Back: no CVA tenderness Skin General skin exam: no rashes or lesions noted and dry skin Neuro General: oriented to person, oriented to place and oriented to time Cranial nerves: Yes Equal, round and reactive pupils present Speech: No Abnormal speech present Gait exam (Neuro): Normal gait present Motor exam (neuro): no tremor noted Deep tendon reflexes (DTR's): Right triceps reflex intensity grade: 2+, Left triceps reflex intensity grade: 2+, Rt Biceps (C5, C6): 2+, Left biceps reflex intensity grade: 2+, Right brachioradialis reflex intensity grade: 2+, Left brachioradialis reflex intensity grade: 2+, Right patellar reflex intensity grade: 2+ and Left patellar reflex intensity grade: 2+ Extrem Right upper extremity: full ROM Left upper extremity: full ROM Right lower extremity: full ROM; no edema Left lower extremity: full ROM; no edema Psych Mental Status: mental status grossly normal Speech and movement: Normal speech and movement present Affect: normal affect Attitude: cooperative Thought process: Normal thought process present Coding Level of Care Code Est Pt Prev Care [id number]([id number]) Diagnoses Adult general medical exam Z00.00 Essential hypertension I10 Class 2 severe obesity with body mass index (BMI) of 35 to 39.9 with serious comorbidity E66.01 Pure hypercholesterolemia E78.00 Hyperlipidemia type: pure hypercholesterolemia Additional Codes PHQ-9 - 83609 - PHQ-9 Billing: Yes ([id number]) TEVIN-7 Assessment Billing - TEVIN-7 Assessment Tool: TEVIN-7 Assessment 94508 ([id number]) Time Spent (min) 35 Assessment & Plan Assessment & Plan (1) Adult general medical exam: Code(s): Z00.00 - Encounter for general adult medical examination without abnormal findings Category: Medical Plan: The patient is up-to-date on his tetanus vaccine. He was reminded of the importance of annual dental and eye exams as part of routine preventative care. Labs ordered, we will advise (2) Essential hypertension: Code(s): I10 - Essential (primary) hypertension Category: Medical Plan: The patient's blood pressure was elevated in the office at 174/92 mmHg, though this may be partially influenced by an ill-fitting cuff and potential white coat hypertension. The risks of long-term uncontrolled hypertension, such as heart failure, were discussed. Given his symptoms of increased urination, the hydrochlorothiazide dose will be decreased from 25 mg to 12.5 mg to encouraged the patient to start taking the medication consistently Lifestyle modifications were recommended, including limiting salt and caffeine intake, as both can elevate blood pressure. The patient was advised to be cautious with pre-workout supplements due to their high stimulant content. Follow-up is scheduled in four weeks for a nurse visit to recheck blood pressure. New labs will also be ordered. (3) Class 2 severe obesity with body mass index (BMI) of 35 to 39.9 with serious comorbidity: Code(s): E66.01 - Morbid (severe) obesity due to excess calories Category: Medical Plan: The patient expressed frustration with his inability to lose weight despite calorie restriction and regular exercise. Weight loss medications or surgery are not considered appropriate at this time. To provide more specific dietary guidance, a referral will be placed for the patient to see a manager council. (4) HLD (hyperlipidemia): Code(s): E78.5 - Hyperlipidemia, unspecified Category: Medical Qualifiers: Hyperlipidemia type: pure hypercholesterolemia Qualified Code(s): E78.00 - Pure hypercholesterolemia, unspecified Plan: Recent labs show improvement in cholesterol, with an LDL of 101 mg/dL on December 2023, which is considered acceptable. However, his HDL is low. It was recommended to increase intake of fish or take fish oil supplements to help improve HDL levels, which the patient reported he has been doing. We will have the patient obtain a lipid panel to further evaluate. Orders: Orders Complete Blood Count Auto Diff 08/03/25 E66.01 - Morbid (severe) obesity due to excess calories, I10 - Essential (primary) hypertension, Z00.00 - Encounter for general adult medical examination without abnormal findings UA CC w/rflx Micro + Cult 08/03/25 E66.01 - Morbid (severe) obesity due to excess calories, I10 - Essential (primary) hypertension, Z00.00 - Encounter for general adult medical examination without abnormal findings Vitamin D 25-OH Total 08/03/25 E66.01 - Morbid (severe) obesity due to excess calories, I10 - Essential (primary) hypertension, Z00.00 - Encounter for general adult medical examination without abnormal findings Comprehensive [place]. Panel Fast 08/03/25 E66.01 - Morbid (severe) obesity due to excess calories, I10 - Essential (primary) hypertension, Z00.00 - Encounter for general adult medical examination without abnormal findings Lipid Panel 08/03/25 E66.01 - Morbid (severe) obesity due to excess calories, I10 - Essential (primary) hypertension, Z00.00 - Encounter for general adult medical examination without abnormal findings TSH reflex Free T4 08/03/25 E66.01 - Morbid (severe) obesity due to excess calories, I10 - Essential (primary) hypertension, Z00.00 - Encounter for general adult medical examination without abnormal findings Referrals Nutrition/Dietitian Referral E66.01 - Morbid (severe) obesity due to excess calories Medications: New hydrochlorothiazide 12.5 mg PO DAILY 30 tabs 3RF
== END 2025-08-03 16:52 | disposition home or self-care (01) ==
LOC: HO.HMCH 15:54
PROVIDERS: PCP Internal Medicine
DX: Z00.00 Encounter for general adult medical examination without abnormal findings (principal); I10 Essential (primary) hypertension; E66.01 Morbid (severe) obesity due to excess calories; E78.00 Pure hypercholesterolemia, unspecified; Z68.38 Body mass index [BMI] 38.0-38.9, adult

== ENCOUNTER → 2025-08-03 15:53 | Outpatient (BNVA) | payer OTHER, SELFPAY | PROVIDERS: PCP Internal Medicine | DX: Z00.00 Encounter for general adult medical examination without abnormal findings (principal); I10 Essential (primary) hypertension; E66.01 Morbid (severe) obesity due to excess calories; E78.00 Pure hypercholesterolemia, unspecified; Z68.38 Body mass index [BMI] 38.0-38.9, adult | CPT/HCPCS: 96127 ==

== ENCOUNTER 2025-08-31 10:34 | Outpatient (REF) | payer OTHER, SELFPAY ==
[2025-08-31 13:04] LABS: MANUAL DIFF FLAG NO
[2025-08-31 13:21] LABS: Hematocrit 43.6 % (42.0-52.0); Hemoglobin 14.2 g/dl (14.0-18.0); Imm Gran Abs Auto 0.02 X10*3/uL (0.00-0.03); Imm Gran Pct Auto 0.3 % (0.0-0.4); Lymphocytes Absolute Auto 2.4 X10*3/uL (1.2-4.9); Mean Corpuscular HGB Conc 32.6 g/dl (31.0-36.0); Mean Corpuscular Hemoglobin 28.2 pg (27.0-33.0); Mean Corpuscular Volume 86.5 fL (80.0-98.0); NRBC Abs Auto 0.000 X10*3/uL (0.0-0.012); NRBC Pct Auto 0.0 /100WBC (0.0-0.2); Platelet Count 304 X10*3/uL (160-400); Red Blood Count 5.04 X10*6/uL (4.60-5.80); White Blood Count 7.0 X10*3/uL (4.8-10.8)
[2025-08-31 13:37] LABS: Appearance Urine Clear; Glucose Urine UA Negative (Negative); PH 6.5 (5.0-9.0); Specific Gravity - Urine 1.020 (1.005-1.025); UMIC TRIGGER UACC YES
[2025-08-31 18:50] LABS: Alanine Aminotransferase 30 U/L (0-40); Albumin Level 4.8 g/dL (3.5-5.0); Alkaline Phosphatase 43 U/L (39-117); Anion Gap 11 (12-20); Aspartate Amino Transferase 33 U/L (5-37); Blood Urea Nitrogen 18 mg/dL (9-16); Calcium 9.4 mg/dL (8.4-10.2); Carbon Dioxide 26 mmol/L (22-29); Chloride 108 mmol/L (96-108); Cholesterol 170 mg/dL (<200); Estimated Glomerular Filt Rate > 60; HDL Cholesterol 33 mg/dL (>40); Potassium 4.1 mmol/L (3.3-5.1); Sodium 141 mmol/L (135-145); Total Protein 7.1 g/dL (6.5-8.0); Triglycerides 106 mg/dL (<150)
== END 2025-08-31 10:35 | disposition home or self-care (01) ==
LOC: HO.HMGCLDS 10:34
DX: Z00.00 Encounter for general adult medical examination without abnormal findings (principal); I10 Essential (primary) hypertension; E66.01 Morbid (severe) obesity due to excess calories; Z68.38 Body mass index [BMI] 38.0-38.9, adult; E78.00 Pure hypercholesterolemia, unspecified
CPT/HCPCS: 36415; 80053; 80061; 81001; 82306; 84443; 85025

== ENCOUNTER 2025-08-31 14:42 | Outpatient (AMB) | payer OTHER, SELFPAY ==
[2025-08-31 14:56] VITALS: BP 150/78; PULSE 71; RESP 18; O2SAT 98; BMI 38.8
--- NOTE | 2025-08-31 14:56 | A.OFFPC_ITS ---
Vital Signs 08/31/25 14:56 08/31/25 15:35 Height 5 ft 10 in Weight 270 lb 4 oz BMI 38.8 BP 150/78 H 138/76 Blood Pressure Location Lt brachial Lt brachial Position Sitting Sitting Respiration 18 Pulse 71 Pulse Source Pulse Oximeter Temp Source Temporal Artery Scan Pulse Oximetry (%) 98 Oxygen Delivery Method Room Air Intake Visit Reasons: 4 week f/u Hydropress Operator Required: No Accompanied by: Self / Same As Patient Allergies Penicillins Adverse Reaction (Intermediate, Verified 09/03/25 22:52) Rash Medication List - Last Reconciled 09/03/25 by NILSON Posadas amlodipine 10 mg PO DAILY hydrochlorothiazide 12.5 mg PO DAILY losartan 25 mg PO DAILY Tobacco use date assessed: 08/31/25 Dental Screening Dental Screen Date: 08/31/25 Did you have a dental visit in the last 12 months?: No Did you have a dental problem in the last 6 months where you did not have access to dental care?: No HPI HPI Comments History of Present Illness Details The patient is a 34 year old male presenting for follow-up of his hypertension management. He is currently taking amlodipine 10 mg and hydrochlorothiazide 12.5 mg for his blood pressure, which has shown some improvement but is not at the target goal. Patient reports medication compliance. Losartan 25 mg daily we will be added to the regimen Health Maintenance - The patient was advised to monitor and reduce salt intake to help manage his blood pressure. Social History - Diet: The patient was advised to watch his salt intake. Results [facility] Medical History Class 2 severe obesity with body mass index (BMI) of 35 to 39.9 with serious comorbidity Essential hypertension Surgical History No pertinent past surgical history Family History Mother No problems noted. Father No problems noted. Social History Housing: House Patient Tobacco Use Status: Never used Tobacco e-Cigarette/Vaping Use: Never Used Second Hand Smoke Exposure: No service: No Current occupational status: employed Current occupational exposures/hazards: No Cognitive needs: No Hearing needs: No Vision needs: No Questionnaire Thrive Questionnaire Date Thrive assessed: 08/31/25 I am a: Patient What is your living situation today?: I have a steady place to live Within the past 12 months, did the food you bought not last and you didn't have the money to get more?: Never true Within the past 12 months, did you worry whether your food would run out before you got money to buy more?: Never true Do you have trouble paying for medicines?: No Do you have trouble getting transportation to medical appointments?: No Do you have trouble paying your heating and electricity bill?: No Do you have trouble taking care of your child, family member or friend?: No Do you have trouble with day-to-day activities such as bathing, preparing meals, shopping, managing finances, etc.?: No Are you currently unemployed and looking for a job?: No Are you interested in more education?: No Please select the resources that you would like help with: None Currently or been in a relationship where the following occur: No concerns reported THRIVE Score: 0 TEVIN-7 AMB Questionnaire TEVIN-7 Date TEVIN - 7 assessed: 08/03/25 Source: Developed by Drs. Morgan Bergman, Jina Ascencio, Cruzito Mahmood and colleagues, with an educational chavo from [employer]. Review of Systems Narrative Review of Systems Const Denies body aches, Denies chills, Denies fever(s), Denies headache(s) and Denies poor appetite Eyes Reports no additional complaints ENT Denies dysphagia, Denies dizziness, Denies headache(s) and Denies odynophagia Card Denies chest pain, Denies syncope, Denies edema, Denies irregular heart rhythm, Denies lightheadedness and Denies dyspnea Resp Denies cough and Denies dyspnea GI Denies abdominal pain, Denies constipation, Denies dysphagia, Denies diarrhea, Denies nausea, Denies odynophagia and Denies vomiting Reports no additional complaints Musc Reports no additional complaints and Denies abnormal gait Skin/Breast Reports system reviewed and no additional complaints, except as documented Neuro Denies abnormal gait, Denies dizziness, Denies syncope and Denies headache(s) Psych Reports no additional complaints Physical exam (Primary Care) Vital Signs: Last Vital Signs Pulse 71 08/31/25 14:56 Resp 18 08/31/25 14:56 BP 138/76 08/31/25 15:35 Pulse Ox 98 08/31/25 14:56 Oxygen Delivery Method Room Air 08/31/25 14:56 BMI result Body Mass Index 38.8 Tobacco/Smoking Status: Tobacco use Status Tobacco use date assessed 08/31/25 08/31/25 15:04 Patient Tobacco Use Status Never used Tobacco 08/31/25 14:56 e-Cigarette/Vaping Use Never Used 08/31/25 14:56 Thrive Assessment: Date of Thrive Assessment Date Thrive assessed 08/31/25 08/31/25 15:04 Currently or been in a relationship where the following occur: No concerns reported Narrative Physical Exam - Vitals: Blood pressure was 138/76 mmHg. - Respiratory: Lungs are clear to auscultation bilaterally. Const General: cooperative, healthy appearing, comfortable and no acute distress Orientation/consciousness: patient oriented x3 HENMT Head: Yes normocephalic Ears: hearing grossly normal bilaterally General nose exam: Normal external nose present Eyes General: appearance normal, both eyes and all related structures Conjunctivae: conjunctivae normal Neck Neck: Yes full ROM and Yes no lymphadenopathy Resp Effort & Inspection: normal respiratory effort Auscultation: clear to auscultation bilaterally, no crackles, no rales, no rhonchi and no wheezes Cardio Rate: regular rate Rhythm: regular rhythm Skin General skin exam: no rashes or lesions noted Neuro General: patient oriented x3 Gait exam (Neuro): Normal gait present Extrem General: Yes normal to inspection, Yes full ROM and No edema Psych Affect: normal affect Attitude: cooperative Insight: Good insight present (Psych) Judgement: Good judgement present (Psych) Coding Level of Care Code Est Pt Level 3 (70093) Diagnoses Pure hypercholesterolemia E78.00 Hyperlipidemia type: pure hypercholesterolemia Time Spent (min) 27 Assessment & Plan Assessment & Plan (1) HLD (hyperlipidemia): Code(s): E78.5 - Hyperlipidemia, unspecified Category: Medical Qualifiers: Hyperlipidemia type: pure hypercholesterolemia Qualified Code(s): E78.00 - Pure hypercholesterolemia, unspecified Plan Plan Patient was informed and verbally consented to the use of an ambient scribe for clinic note documentation during this visit. 1. Essential Hypertension The patient's blood pressure is 138/76 mmHg, which is improved but not at the t arget goal while on amlodipine 10 mg and hydrochlorothiazide 12.5 mg. To achieve better control, a small dose of a second agent will be added. Losartan 25 mg, the lowest available dose, will be added to his regimen. The patient was advised to continue watching his salt intake. A follow-up appointment is scheduled in one month to recheck his blood pressure. Discussion Notes I discussed with the patient that his blood pressure reading today was 138/76 mmHg. While this is an improvement, it is not yet at our target. To further lower his blood pressure, I recommended adding a low dose of a second medication, losartan 25 mg, to his current amlodipine. I also reiterated the importance of watching his salt intake. We will re-evaluate his blood pressure in one month to assess the effectiveness of the new medication. Patient Instructions - Please start taking Losartan 25 mg as prescribed, in addition to your current amlodipine. - Continue to be mindful of your salt intake, as this will help lower your blood pressure. - Please schedule a follow-up appointment in one month to have your blood pressure checked again. Medications: New losartan 25 mg PO DAILY 30 tabs 3RF
[2025-08-31 15:35] VITALS: BP 138/76
== END 2025-08-31 15:45 | disposition home or self-care (01) ==
LOC: HO.HMCH 14:43
PROVIDERS: PCP Internal Medicine
DX: E78.00 Pure hypercholesterolemia, unspecified (principal)